=== PATIENT | male | born 1970 | race Caucasian/White ===

== ENCOUNTER 2017-11-13 17:15 | Emergency (ER) | payer BC ==
[2017-11-13 17:41] VITALS: BP 139/83; PULSE 99; TEMP 100.1; BMI 25.0
[2017-11-13] MEDS ORDERED: ACETAMINOPHEN 500 MG TABLET (FP) PO ONE (17:49)
[2017-11-13] MEDS ORDERED: ACETAMINOPHEN 500 MG TABLET (FP) ONE (17:56)
--- NOTE | 2017-11-13 17:58 | PDOC ---
History of Present Illness - General Chief Complaint: Cold Symptoms Stated Complaint: NEEDS FLU SWAB Time Seen by Provider: 11/13/17 17:18 - History of Present Illness Initial Comments: 11/13/17 17:52 47 M with no PMH presents to ED with 1 day of bodyaches, fevers, and cough. Denies N/V/D. Denies CP/SOB. Denies MI/neck pain. 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 Past History - Past Medical History Allergies/Adverse Reactions: Allergies Allergy/AdvReac Type Severity Reaction Status Date / Time No Known Allergies Allergy Verified 03/27/16 12:34 Home Medications: Ambulatory Orders Metoprolol Succinate [Toprol XL -] 25 mg PO DAILY 06/03/13 Pantoprazole Sodium [Protonix -] 20 mg PO DAILY 06/03/13 Rifaximin [Xifaxan] 550 mg PO BID PRN 11/01/15 Mag Hydrox/Al Hydrox/Simeth [Mylanta Suspension -] 30 ml PO Q6H PRN #1 bottle Cardiac Disorders: Yes (PALPITATIONS, PVC) COPD: No GI Disorders: Yes (GERD) Psychiatric Problems: Yes (anxiety, depression) - Immunization History Immunization Up to Date: Yes - Suicide/Smoking/Psychosocial Hx Smoking Status: No Smoking History: Never smoked Have you smoked in the past 12 months: No Number of Cigarettes Smoked Daily: 0 Information on smoking cessation initiated: No Hx Alcohol Use: No Drug/Substance Use Hx: No Substance Use Type: Alcohol Review of Systems - Review of Systems Comments:: 11/13/17 17:58 "GENERAL/CONSTITUTIONAL: + fever. No weakness. HEAD, EYES, EARS, NOSE AND THROAT: No change in vision. No ear pain or discharge. No sore throat. CARDIOVASCULAR: No chest pain or shortness of breath. RESPIRATORY: + cough, no wheezing, or hemoptysis. GASTROINTESTINAL: No nausea, vomiting, diarrhea or constipation. GENITOURINARY: No dysuria, frequency, or change in urination. MUSCULOSKELETAL: No joint or muscle swelling or pain. No neck or back pain. SKIN: No rash NEUROLOGIC: No headache, vertigo, loss of consciousness, or change in strength/ sensation. ENDOCRINE: No increased thirst. No abnormal weight change. HEMATOLOGIC/LYMPHATIC: No anemia, easy bleeding, or history of blood clots. ALLERGIC/IMMUNOLOGIC: No hives or skin allergy. " *Physical Exam - Vital Signs Last Vital Signs Temp Pulse Resp BP Pulse Ox 100.1 F H 99 H 20 139/83 100 11/13/17 17:15 11/13/17 17:15 11/13/17 17:15 11/13/17 17:15 11/13/17 17:15 - Physical Exam Comments: 11/13/17 17:59 "GENERAL: Awake, alert, and fully oriented, in no acute distress HEAD: No signs of trauma EYES: PERRLA, EOMI, sclera anicteric, conjunctiva clear ENT: Auricles normal inspection, hearing grossly normal, nares patent, oropharynx clear without exudates. Moist mucosa NECK: Nontender, no stepoffs, Normal ROM, supple, no lymphadenopathy, JVD, or masses LUNGS: Breath sounds equal, clear to auscultation bilaterally. No wheezes, and no crackles HEART: Regular rate and rhythm, normal S1 and S2, no murmurs, rubs or gallops ABDOMEN: Soft, nontender, normoactive bowel sounds. No guarding, no rebound. No masses EXTREMITIES: Normal range of motion, no edema. No clubbing or cyanosis. No cords, erythema, or tenderness NEUROLOGICAL: Cranial nerves II through XII intact. 5/5 strength and sensation in all extremities, Normal speech, normal gait SKIN: Warm, Dry, normal turgor, no rashes or lesions noted. " Medical Decision Making - Medical Decision Making 11/13/17 18:00 47 M with fevers, cough, bodyaches. Likely viral URI, possible flu. - Flu swab - Tylenol 11/13/17 18:04 Pt requesting to leave. Flu swab still pending. Pt well appearing, vitals wnl (repeat HR 80), clinically stable for DC. I discussed the physical exam findings, ancillary test results and final diagnoses with the patient. I answered all of the patient's questions. The patient was satisfied with the care received and felt comfortable with the discharge plan and treatment plan. The patient agrees to follow up with the primary care physician within 24-72 hours. 11/14/17 08:55 Flu swab negative. *DC/Admit/Observation/Transfer Diagnosis at time of Disposition: URI (upper respiratory infection) - Discharge Dispostion Disposition: HOME Condition at time of disposition: Stable - Referrals - Patient Instructions Printed Discharge Instructions: DI for Viral Upper Respiratory Infection -- Adult Additional Instructions: Drink plenty of fluids to stay hydrated. Take tylenol or motrin as needed for fevers. If you experience worsening fevers, vomiting, headache, or any other concerning symptoms, return to the ER immediately. - Post Discharge Activity Forms/Work/School Notes: Back to Work - Attestations Physician Attestion: 11/13/17 18:05 I, Dr. John Pickens MD, attest that this document has been prepared under my direction and personally reviewed by me in its entirety. I further attest, that it accurately reflects all work, treatment, procedures and medical decision -making performed by me.
[2017-11-13] MEDS ORDERED: ONDANSETRON *ODT* 4 MG TABLET ONE (18:00)
[2017-11-13] MEDS ORDERED: ONDANSETRON *ODT* 4 MG TABLET SL ONE (18:00)
== END 2017-11-13 19:28 | disposition home or self-care (01) ==
LOC: FER 17:15
DX: J06.9 Acute upper respiratory infection, unspecified (principal); R00.2 Palpitations; K21.9 Gastro-esophageal reflux disease without esophagitis; F41.8 Other specified anxiety disorders
CPT/HCPCS: 87804; 99282-25

== ENCOUNTER 2017-11-15 13:30 | Emergency (ER) | payer BC ==
[2017-11-15 13:38] VITALS: BMI 25.0
[2017-11-15] MEDS ORDERED: ACETAMINOPHEN 325 MG TABLET (FP) PO ONE (13:46)
[2017-11-15] MEDS ORDERED: KETOROLAC TROMETHAMINE 30 MG/1 ML VIAL IVPUSH ONE (13:46)
[2017-11-15] MEDS ORDERED: KETOROLAC TROMETHAMINE 30 MG/1 ML VIAL ONE (13:47)
[2017-11-15] MEDS ORDERED: ACETAMINOPHEN INJECTION 100 ML IVPB ONE (13:47)
--- NOTE | 2017-11-15 13:47 | PDOC ---
History of Present Illness - General Chief Complaint: Respiratory Stated Complaint: RUNNY NOSE, THROAT PAIN, FEVER Time Seen by Provider: 11/15/17 13:32 History Source: Patient Exam Limitations: No Limitations - History of Present Illness Initial Comments: 11/15/17 13:47 47yM presents with complaint of 2 days of bodyaches, fever, sore throat, congestion, dry cough. Was seen by ED for same on 11/13 with negative flu swab. Pt denies any abd pain, n/v, diarrhea, dysuria, rashes. NOtes gf was treated for flu a few weeksa go. pt is also an EMT with +sick exposures. Past History - Past Medical History Allergies/Adverse Reactions: Allergies Allergy/AdvReac Type Severity Reaction Status Date / Time No Known Allergies Allergy Verified 11/15/17 13:31 Home Medications: Ambulatory Orders Metoprolol Succinate [Toprol XL -] 25 mg PO DAILY 06/03/13 Pantoprazole Sodium [Protonix -] 20 mg PO DAILY 06/03/13 Acetaminophen [Tylenol] 650 mg PO ASDIR PRN 11/15/17 Famotidine [Pepcid] 40 mg PO DAILY 11/15/17 Cardiac Disorders: Yes (PALPITATIONS, PVC) COPD: No GI Disorders: Yes (GERD) Psychiatric Problems: Yes (anxiety, depression) - Immunization History Immunization Up to Date: Yes - Suicide/Smoking/Psychosocial Hx Smoking Status: No Smoking History: Never smoked Have you smoked in the past 12 months: No Number of Cigarettes Smoked Daily: 0 Hx Alcohol Use: No Drug/Substance Use Hx: No Substance Use Type: Alcohol Review of Systems - Review of Systems Able to Perform ROS?: Yes Comments:: 11/15/17 13:49 Constitutional - +Fever, Chills, no reported HEENT: no reported vision changes, sore throat Respiratory: +cough, no reported sob, hemoptysis Cardiac: no reported chest pain, palpitations, light headedness, leg swelling Abd/GI: no reported abd pain, nausea, vomiting, blood per rectum, melena, diarrhea : no reported dysuria, frequency, discharge Musculskelatal - no reported back pain, joint swelling skin - no reported bruising, erythema, rash neurological: no reported headache, numbness, focal weakness, tingling, ataxia, hematologic: no reported anemia, easy bruising, easy bleeding *Physical Exam - Vital Signs Last Vital Signs Temp Pulse Resp BP Pulse Ox 100.1 F H 104 H 20 132/92 99 11/15/17 13:30 11/15/17 13:30 11/15/17 13:30 11/15/17 13:30 11/15/17 13:30 - Physical Exam Comments: 11/15/17 14:00 GENERAL: The patient is awake, alert, and fully oriented, Nontoxic - in no acute distress. HEAD: Normocephalic, atraumatic. EYES: extraocular movements intact, sclera anicteric, conjunctiva clear. ENT: Normal voice, Moist mucous membranes, mild erytema in posterior pharynx NECK: Normal range of motion, supple LUNGS: Breath sounds equal, clear to auscultation bilaterally. No wheezes, no rhonchi, no rales. HEART: Regular rate and rhythm, normal S1 and S2 without murmur, rub or gallop. ABDOMEN: Soft, nontender, normoactive bowel sounds. No guarding, no rebound. . No CVA tenderness EXTREMITIES: Normal range of motion, no edema. No clubbing or cyanosis. No cords, erythema, or tenderness. NEUROLOGICAL: No facial assymetry, Normal speech, PSYCH: Normal mood, normal affect. SKIN: Warm, Dry, normal turgor, Medical Decision Making - Medical Decision Making 11/15/17 14:00 suspect flu vs viral syndrome will give fluids, motrin/tylenol for symptomatic relief 11/15/17 15:04 pt feeling improved will dc with supportive care at home I discussed the physical exam findings, ancillary test results and final diagnoses with the patient. I answered all of the patient's questions. The patient was satisfied with the care received and felt comfortable with the discharge plan and treatment plan. The patient will call their primary care physician within 24 hours to arrange follow-up and will return to the Emergency Department with any new, persistent or worsening symptoms. *DC/Admit/Observation/Transfer Diagnosis at time of Disposition: Flu-like symptoms - Discharge Dispostion Disposition: HOME Condition at time of disposition: Improved Admit: No - Referrals Referrals: Myke Srivastava MD [Staff Physician] - - Patient Instructions Printed Discharge Instructions: DI for Influenza -- Adult Additional Instructions: Return to the emergency department immediately with ANY new, persistent or worsening symptoms. You MUST call and follow up with your doctor tomorrow for further evaluation of your symptoms. Results were discussed with you. Please make sure your doctor reviews the results of your emergency evaluation. If you had any xrays during your visit, it was read preliminarily by myself, a Radiologist will review it and if there are any additional findings we will call you. Print Language: UGANDAN - Post Discharge Activity Forms/Work/School Notes: Back to Work
[2017-11-15] MEDS ORDERED: ACETAMINOPHEN 1000 MG/100 ML VIAL (NON FORMULARY) IVPB ONE (13:56)
[2017-11-15] MEDS ORDERED: guaiFENesin/CODEINE 10 ML UNIT-DOSE CUPS PO ONE (14:30)
[2017-11-15] MEDS ORDERED: guaiFENesin/CODEINE 10 ML UNIT-DOSE CUPS ONE (14:32)
[2017-11-15 14:53] VITALS: BP 125/87; PULSE 91; TEMP 98.3
== END 2017-11-15 15:00 | disposition home or self-care (01) ==
LOC: FER 13:30
PROC: 3E033NZ Introduction of Analgesics, Hypnotics, Sedatives into Peripheral Vein, Percutaneous Approach (ICD-10-PCS; principal; 2017-11-15)
PROC: 3E0333Z Introduction of Anti-inflammatory into Peripheral Vein, Percutaneous Approach (ICD-10-PCS; 2017-11-15)
DX: J11.1 Influenza due to unidentified influenza virus with other respiratory manifestations (principal); R00.2 Palpitations; K21.9 Gastro-esophageal reflux disease without esophagitis; F41.8 Other specified anxiety disorders
CPT/HCPCS: 99284-25

== ENCOUNTER 2019-06-02 14:33 | Emergency (ER) | payer BC, OTHER ==
[2019-06-02 14:39] VITALS: BP 149/97; PULSE 94; TEMP 98.1; BMI 25.8
[2019-06-02] MEDS ORDERED: IBUPROFEN 600 MG TABLET (FP) PO ONE ×2 (14:39→14:44)
[2019-06-02] MEDS ORDERED: DIPHTH,PERTUSS(ACELL),TET 0.5 ML DISP.SYRIN IM ONE ×2 (14:55→15:00)
--- NOTE | 2019-06-02 15:15 | PDOC ---
History of Present Illness - General Chief Complaint: Injury Stated Complaint: cut to right ring finger at work Time Seen by Provider: 06/02/19 14:37 History Source: Patient Exam Limitations: No Limitations - History of Present Illness Initial Comments: 06/02/19 15:11 49 yo no significant pmhx here s/p right hand injury. 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 min pain and swelling. small abrasion. last tetanus unknonw. pain mild. did not take anything prior to arrival. right hand dominant. no wrist, elbow or shoulder injury. Past History - Past Medical History Allergies/Adverse Reactions: Allergies Allergy/AdvReac Type Severity Reaction Status Date / Time No Known Allergies Allergy Verified 06/02/19 14:36 Home Medications: Ambulatory Orders Metoprolol Succinate [Toprol XL -] 25 mg PO DAILY 06/03/13 Pantoprazole Sodium [Protonix -] 20 mg PO DAILY 06/03/13 Famotidine [Pepcid] 40 mg PO DAILY 11/15/17 Cardiac Disorders: Yes (PALPITATIONS, PVC) COPD: No GI Disorders: Yes (GERD) HTN: Yes Psychiatric Problems: Yes (anxiety, depression) - Immunization History Immunization Up to Date: Yes - Suicide/Smoking/Psychosocial Hx Smoking Status: No Smoking History: Never smoked Have you smoked in the past 12 months: No Number of Cigarettes Smoked Daily: 0 Hx Alcohol Use: No Drug/Substance Use Hx: No Substance Use Type: Alcohol Review of Systems - Review of Systems Constitutional: No: Chills, Diaphoresis Respiratory: No: Cough Cardiac (ROS): No: Chest Pain Musculoskeletal: Yes: Joint Pain Integumentary: Yes: Other (abrasion) All Other Systems: Reviewed and Negative *Physical Exam - Vital Signs Last Vital Signs Temp Pulse Resp BP Pulse Ox 98.1 F 94 H 18 149/97 98 06/02/19 14:34 06/02/19 14:34 06/02/19 14:34 06/02/19 14:34 06/02/19 14:34 - Physical Exam Comments: 06/02/19 15:12 awake alert lungs clear heart rrr. right hand superficial punctate 1 mm abrasion over knuckle. from at [facility] joint. no bony deformity min redness. distally n/v intact. wrist elbow shoulder nt from. ED Treatment Course - RADIOLOGY Radiology Studies Ordered: Category Date Time Status HAND- RIGHT [RAD] Stat Radiology 06/02/19 14:38 Taken - Medications Given in the ED: ED Medications Discontinued Medications Generic Name Dose Route Start Last Admin Trade Name Freq PRN Reason Stop Dose Admin Diphtheria/Tetanus/Acell Pertussis 0.5 ml 06/02/19 14:55 06/02/19 15:02 Boostrix - IM 06/02/19 14:56 0.5 ml .ONCE ONE Administration Ibuprofen 600 mg 06/02/19 14:39 06/02/19 14:50 Motrin - PO 06/02/19 14:40 600 mg ONCE ONE Administration Medical Decision Making - Medical Decision Making 06/02/19 15:14 superficial abrasion to right hand. c/o bony pain. xray r/o fx is negative. dc home. tetanus given to pt. *DC/Admit/Observation/Transfer Diagnosis at time of Disposition: Abrasion - Discharge Dispostion Disposition: HOME Condition at time of disposition: Improved - Referrals - Patient Instructions Printed Discharge Instructions: DI for Abrasion Additional Instructions: apply bactracin to wound as needed. take motrin 400 mg which you can buy over the counter every 8 hours as needed for pain. - Post Discharge Activity
== END 2019-06-02 15:21 | disposition home or self-care (01) ==
LOC: FER 14:33
PROC: 3E0234Z Introduction of Serum, Toxoid and Vaccine into Muscle, Percutaneous Approach (ICD-10-PCS; principal; 2019-06-02)
DX: S60.511A Abrasion of right hand, initial encounter (principal); W20.8XXA Other cause of strike by thrown, projected or falling object, initial encounter; Y93.89 Activity, other specified; Y92.239 Unspecified place in hospital as the place of occurrence of the external cause; Y99.0 Civilian activity done for income or pay
CPT/HCPCS: 73130-TC-RT-FY; 90715; 99282-25